=== PATIENT | female | born 2000 | race Caucasian/White ===

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

== ENCOUNTER 2020-02-27 15:22 | Emergency (ER) | payer OTHER ==
[~2020-02-27] VITALS: Ht 170.2 cm; Wt 54.5 kg
[2020-02-27 16:11] VITALS: BP 123/80
== END 2020-02-27 16:05 | disposition home or self-care (01) ==
LOC: ED 15:22
DX: S16.1XXA Strain of muscle, fascia and tendon at neck level, initial encounter (principal); Y04.8XXA Assault by other bodily force, initial encounter; Y92.59 Other trade areas as the place of occurrence of the external cause

== ENCOUNTER → 2024-01-08 | Outpatient (CLI) | payer BC ==
[~2024-01-08] MED LIST: LEXAPRO 10MG10 MG PO; MINIPRESS 1M1 MG/CAP; TOPAMAX100 MG PO
[2024-01-08 10:26] LABS: BASO # 0.03 K/mm3 (0.02-0.10); EOS # 0.09 K/mm3 (0.04-0.40); EOS % 1.4 % (1.0-5.0); HEMATOCRIT 45.3 % (37.0-47.0); HEMOGLOBIN 15.5 g/dL (12.5-16.0); LYMPH# 1.37 K/mm3 (1.50-4.00); MEAN CELL VOLUME 97 fl (78-100); MEAN CORPUSCULAR HEMOGLOBIN 33 pg (27-31); MEAN CORPUSCULAR HGB CONC 34 g/dL (33-37); MEAN PLATELET VOLUME 10.2 fl (7.4-10.4); MONO # 0.36 K/mm3 (0.20-0.80); NEU # 4.76 K/mm3 (1.40-6.50); PLATELET COUNT 226 K/mm3 (130-400); RED BLOOD COUNT 4.66 M/mm3 (4.10-5.30); WHITE BLOOD COUNT 6.6 K/mm3 (4.8-10.8)
[2024-01-08 10:33] LABS: ALBUMIN 4.9 g/dL (3.5-5.0)
[2024-01-08 10:34] LABS: CALCIUM 9.7 mg/dL (8.3-10.5)
[2024-01-08 10:36] LABS: TOTAL PROTEIN 7.7 g/dL (6.4-8.3)
[2024-01-08 10:37] LABS: TOTAL BILIRUBIN 1.2 mg/dL (0.2-1.2)
== END ==
LOC: LAB 10:11
PROVIDERS: Family Medicine
DX: Z12.11 Encounter for screening for malignant neoplasm of colon (principal); E78.5 Hyperlipidemia, unspecified; D50.9 Iron deficiency anemia, unspecified; N18.9 Chronic kidney disease, unspecified; R73.9 Hyperglycemia, unspecified

== ENCOUNTER → 2024-07-23 | Outpatient (CLI) | payer BC ==
[~2024-07-23] VITALS: Ht 170.2 cm; Wt 52.3 kg
[2024-07-23 12:34] LABS: BASO # 0.05 K/mm3 (0.02-0.10); EOS % 5.1 % (1.0-5.0); HEMATOCRIT 45.2 % (37.0-47.0); HEMOGLOBIN 15.8 g/dL (12.5-16.0); LYMPH# 1.47 K/mm3 (1.50-4.00); MEAN CELL VOLUME 96 fl (78-100); MEAN CORPUSCULAR HEMOGLOBIN 34 pg (27-31); MEAN CORPUSCULAR HGB CONC 35 g/dL (33-37); MEAN PLATELET VOLUME 9.9 fl (7.4-10.4); MONO # 0.47 K/mm3 (0.20-0.80); PLATELET COUNT 239 K/mm3 (130-400); RED BLOOD COUNT 4.71 M/mm3 (4.10-5.30); WHITE BLOOD COUNT 5.9 K/mm3 (4.8-10.8)
[2024-07-23 12:41] LABS: ALBUMIN 4.6 g/dL (3.5-5.0)
[2024-07-23 12:43] LABS: CALCIUM 9.4 mg/dL (8.3-10.5)
[2024-07-23 12:44] LABS: TOTAL PROTEIN 6.9 g/dL (6.4-8.3)
[2024-07-23 12:46] LABS: TOTAL BILIRUBIN 0.9 mg/dL (0.2-1.2)
== END ==
LOC: LAB 12:18
PROVIDERS: Nurse Practitioner
DX: I51.7 Cardiomegaly (principal)